=== PATIENT | male | born 1970 | race Caucasian/White ===

== ENCOUNTER 2022-12-06 09:38 | Day surgery (SDC) | payer OTHER ==
[~2022-12-06] VITALS: Ht 160 cm; Wt 77.1 kg
[2022-12-06] MEDS ORDERED: fentaNYL citrate 0.05 MG/ML VIAL ONE (10:18)
[2022-12-06] MEDS ORDERED: LIDOCAINE 2% 100 MG/5 ML UJET TP ONE ×2 (10:18→16:10)
[2022-12-06] MEDS ORDERED: FENTANYL C 0.025 MG/HR PATCH TD SCH (16:10)
[2022-12-07] MEDS ORDERED: fentaNYL citrate 0.05 MG/ML VIAL IVP ONE (17:10)
== END 2022-12-06 10:56 | disposition home or self-care (01) ==
LOC: MDS 09:38 → MMU 09:41 → MDS 10:56
PROVIDERS: ATTEND Internal Medicine Gastroenterology
DX: Z12.11 Encounter for screening for malignant neoplasm of colon (principal); I10 Essential (primary) hypertension; Z85.54 Personal history of malignant neoplasm of ureter
CPT/HCPCS: 45378; J3010